=== PATIENT | female | born 2000 | race Caucasian/White ===

== ENCOUNTER → 2018-12-27 | Outpatient (CLI) | payer OTHER ==
[~2018-12-27] VITALS: Ht 161.3 cm; Wt 88.0 kg
[~2018-12-27] MED LIST: ORAL BIRTH CONTROL PO
[2018-12-27 08:04] VITALS: BP 100/70; PULSE 64
== END ==
LOC: LIGHT
DX: G43.709 Chronic migraine without aura, not intractable, without status migrainosus (principal); J45.909 Unspecified asthma, uncomplicated; E66.9 Obesity, unspecified; Z71.3 Dietary counseling and surveillance
CPT/HCPCS: G0463

== ENCOUNTER → 2019-01-01 | Outpatient (CLI) | payer OTHER | LOC: LIGHT 10:42 | DX: G43.709 Chronic migraine without aura, not intractable, without status migrainosus (principal); J45.909 Unspecified asthma, uncomplicated; E66.9 Obesity, unspecified; Z68.33 Body mass index [BMI] 33.0-33.9, adult; Z71.3 Dietary counseling and surveillance ==

== ENCOUNTER → 2019-03-07 | Outpatient (CLI) | payer OTHER ==
[~2019-03-07] VITALS: Ht 161.3 cm; Wt 91.2 kg
[~2019-03-07] MED LIST changes: +PHENTERMINE15 MG PO
[2019-03-07 09:55] VITALS: BP 96/50; PULSE 60
== END ==
LOC: LIGHT 09:43
DX: Z68.35 Body mass index [BMI] 35.0-35.9, adult (principal); R51 Headache
CPT/HCPCS: G0463